=== PATIENT | female | born 1980 | race Caucasian/White ===

== ENCOUNTER 2018-04-24 22:09 | Emergency (ER) | payer OTHER ==
--- NOTE | 2018-04-24 22:52 | EDM.PDOC ---
ED HPI GENERAL MEDICAL PROBLEM - General Chief Complaint: Skin Complaint Stated Complaint: RT FOOT PAIN Time Seen by Provider: 04/24/18 22:30 Source of Information: Reports: Patient, Family History Limitations: Reports: No Limitations - History of Present Illness INITIAL COMMENTS - FREE TEXT/NARRATIVE: Aubree stepped onto a glass shard from a broken vase about a half hour ago, and believes a fragment may remain. She did remove some glass debris. There is minimal bleeding. Her tetanus vax status is current. - Related Data Allergies Allergy/AdvReac Type Severity Reaction Status Date / Time No Known Allergies Allergy Verified 07/28/14 19:47 Home Meds: Home Meds Desogestrel/Ethinyl Estradiol [Apri] 1 tab PO DAILY 07/28/14 [History] Omeprazole 20 mg PO DAILY 07/28/14 [History] Citalopram Hydrobromide [Citalopram HBr] 20 mg PO DAILY 04/30/16 [History] Metoprolol Succinate [Toprol XL] 50 mg PO DAILY 04/30/16 [History] Past Medical History - Past Health History Medical/Surgical History: Denies Medical/Surgical History Cardiovascular History: Reports: Arrhythmia Psychiatric History: Reports: Depression ED ROS GENERAL - Review of Systems Review Of Systems: ROS reveals no pertinent complaints other than HPI. ED EXAM, SKIN/RASH Exam: See Below Exam Limited By: No Limitations General Appearance: Alert, WD/WN, No Apparent Distress Head: Normocephalic Neck: Normal Inspection Respiratory/Chest: Lungs Clear Cardiovascular: Regular Rate, Rhythm Back Exam: Normal Inspection Extremities: Other (minor plantar puncture wound R foot near 2nd MTP joint) Neurological: Alert, Oriented, CN II-XII Intact, No Motor/Sensory Deficits Psychiatric: Normal Affect, Normal Mood Skin: Warm, Dry, Normal Color, Other (minor puncture wound R foot plantar; small glass fragment removed uneventfully) Course - Vital Signs Text/Narrative:: Aubree tolerated wound management well. A band aid with antibx oint was applied. Departure - Departure Time of Disposition: 22:52 Disposition: Home, Self-Care 01 Condition: Good Clinical Impression: Foreign body in right foot Qualifiers: Encounter type: initial encounter Qualified Code(s): S90.851A - Superficial foreign body, right foot, initial encounter - Discharge Information *PRESCRIPTION DRUG MONITORING PROGRAM REVIEWED*: Not Applicable *COPY OF PRESCRIPTION DRUG MONITORING REPORT IN PATIENT SERENE: Not Applicable Referrals: Radha Byrnes NP [Primary Care Provider] - Forms: ED Department Discharge - Problem List & Annotations (1) Foreign body in right foot SNOMED Code(s): 846729465 Code(s): S90.851A - SUPERFICIAL FOREIGN BODY, RIGHT FOOT, INITIAL ENCOUNTER Status: Acute Current Visit: Yes Annotation/Comment:: Local wound cares as needed. Qualifiers: Encounter type: initial encounter Qualified Code(s): S90.851A - Superficial foreign body, right foot, initial encounter - Problem List Review Problem List Initiated/Reviewed/Updated: Yes - Assessment/Plan Plan: Follow up with PCP if needed.
[2018-04-24 23:10] VITALS: BP 158/97
== END 2018-04-24 23:05 | disposition home or self-care (01) ==
LOC: FB.ED 22:09
DX: S91.341A Puncture wound with foreign body, right foot, initial encounter (principal); W45.8XXA Other foreign body or object entering through skin, initial encounter
CPT/HCPCS: 99282

== ENCOUNTER 2025-02-26 06:18 | Day surgery (SDC) | payer OTHER ==
[~2025-02-26 06:18] MED LIST: Lactated Ringers 1,000 ML IV SCH; Sodium Chloride 0.9% 10 ML Syringe FLUSH PRN
[2025-02-26] MEDS ORDERED: Phenylephrine 0.5% Nasal Spray 15 ML Bot NAS ONE (06:19)
[2025-02-26] MEDS ORDERED: Ketamine 500 mg/10 ML MDV IV ONE (06:19)
[2025-02-26] MEDS ORDERED: Midazolam 1 MG/ML 2 ML SDV IV ONE (06:19)
[2025-02-26] MEDS ORDERED: Propofol 200 MG/20 ML SDV IV ONE (06:19)
[2025-02-26 06:49] VITALS: BP 154/91; PULSE 88
[2025-02-26] MEDS: Lactated Ringers 1,000 ML IV SCH (07:20)
[2025-02-26] MEDS: Simethicone Drops 40 MG/0.6 ML 30 ML Bottle ONE (07:28)
== END 2025-02-26 09:02 | disposition home or self-care (01) ==
LOC: FB.SDS 06:18
PROVIDERS: ATTEND Surgery
DX: Z12.11 Encounter for screening for malignant neoplasm of colon (principal); Z80.0 Family history of malignant neoplasm of digestive organs; K21.9 Gastro-esophageal reflux disease without esophagitis; I10 Essential (primary) hypertension; F41.9 Anxiety disorder, unspecified; Z79.899 Other long term (current) drug therapy
CPT/HCPCS: 00812; A9270-GY; J2250; J2704; J3490; J7120